=== PATIENT | female | born 1965 | race Caucasian/White ===

== ENCOUNTER 2017-04-14 05:23 | Day surgery (SDC) | payer OTHER ==
[~2017-04-14] VITALS: Ht 167.6 cm; Wt 70.3 kg
[2017-04-14] VITALS (8 sets, daily range): BP systolic 133–155; BP diastolic 66–74
--- NOTE | ~2017-04-14 | EKG ---
[address] [address] ELECTROCARDIOGRAM REPORT Name: BELÉN MCDONALD Room #: 150-3 [facility].R.#: [id number] Admission: 04/14/17 Attend Phys: Jared Booth Discharge: Date of : 61 Report #: [id number] THIS REPORT FOR: //name// [facility] Test Date: 2017-04-14 Test Time: 07:21:56 Pat Name: BELÉN MCDONALD Department: Room: 150 3 Gender: F Stumper Feller: REBECCA : 1965 Requested By: Jared Moreno Order Number: [id number] MD: Jose Erickson Measurements Intervals [place] Rate: 72 P: 55 MD: 173 QRS: 57 QRSD: 83 T: 18 QT: 368 QTc: 403 Interpretive Statements Sinus rhythm Normal tracing Compared to ECG 07/30/2004 09:20:38 No significant changes Electronically Signed On 04-14-2017 8:44:40 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
--- NOTE | ~2017-04-14 | O ---
[facility] [place] [address] OPERATIVE REPORT Name: BELÉN MCDONALD Room #: [facility] MKristen.#: [id number] Admission: 04/14/17 Attend Phys: Jared Booth Discharge: 04/15/17 Date of : 61 Report #: [id number] THIS REPORT FOR: //name// CC: Jared May DATE OF SERVICE: 04/14/2017 PREOPERATIVE DIAGNOSES: Right shoulder pain, recurrent; massive rotator cuff tear, glenohumeral joint osteoarthritis, asymptomatic acromioclavicular joint osteoarthritis. POSTOPERATIVE DIAGNOSES: Right shoulder recurrent rotator cuff tear, massive; complex labral tear, humeral head and glenoid chondromalacia, subacromial adhesions, retained loose hardware/implants. PROCEDURE PERFORMED: Right shoulder arthroscopy, rotator cuff repair of the subscapularis, superior capsule reconstruction, extensive debridement, hardware removal. SURGEON: Jared Moreno M.D. WIRE WALKER: Sharona Cheung PA-C ANESTHESIA: General with preoperative indwelling interscalene block catheter by Dr. Paola Rodríguez. FLUIDS: 750 mL crystalloid. ESTIMATED BLOOD LOSS: Approximately 10 mL. IMPLANTS UTILIZED: Arthrex superior capsule reconstruction with associated push-lock and SwiveLock anchors and allograft decellularized dermis. DESCRIPTION OF PROCEDURE: After proper identification of the patient and operative site in preoperative holding area, the operative site was signed by myself. Prophylactic antibiotics given. The patient discussed the risks, benefits, alternatives and potential complications of a nerve block with Dr. Rodríguez. After reviewing these, she elected to proceed with this and an indwelling catheter was placed. The patient tolerated this well. The patient has had difficulty with postoperative pain management, nausea and vomiting following her prior surgeries requiring admittance to the hospital. The patient was then brought back to the operative suite. After induction of satisfactory general endotracheal anesthesia, the right shoulder was examined. It was stable throughout a full arc of motion comparable to the preoperative assessment. The patient was carefully positioned in the left lateral decubitus position on [address] [address] OPERATIVE REPORT Name: BELÉN MCDONALD Room #: [facility] M.R.#: [id number] Admission: 04/14/17 Attend Phys: Jared Booth Discharge: 04/15/17 Date of : 61 Report #: [id number] bag and extra roll utilized to support the torso. The right shoulder was sterilely prepped and draped in usual manner and placed in 10 pounds of balanced arthroscopic suspension. Posterior portal was established. Joint was inflated with an arthroscopic pump set at 40 mmHg. An anterior superior portal was created using a spinal needle for localization. Examination of the glenohumeral joint revealed a massive rotator cuff tear. This involved the upper border of the subscapularis, the entire supraspinatus extending into the anterior infraspinatus, complex labral tear of the more anterior, superior and posterior superior quadrants was noted and this was carefully debrided with motorized shaver. Partial thickness chondral loss fibrillation and loose chondral flaps were noted on the more superior humeral head. Fibrillated tissue was carefully debrided. This appeared to occupy approximately 50% of the chondral thickness. There was also some thinning of the humeral head chondral surface inferiorly as well as along the more superior aspect of the glenoid some wear was noted here. There was evidence of prior long head of the biceps tendon tear. At this point, an additional more anterior inferior portal was created for the subscapularis repair. The upper border was torn for approximately 10-12 mm. Sharp ring curet was used to prepare the lesser tuberosity and utilizing a 4.75 mm SwiveLock anchor and a fiber type passed in a simple manner the upper border was secured. The arthroscope was then introduced into the subacromial space. An additional posterolateral and lateral portal were created with a pass port and a portal off the lateral border of the acromion. Subdeltoid and subacromial adhesions were carefully released. There was no supraspinatus available to attempt a repair. Retained suture from her previous repairs was noted and this was removed in its entirety. There were two anchors of more of a PEEK type material that were loose that were able to be removed as well. Along the greater tuberosity, there were multiple metallic anchors placed and these portions were removed as best as possible. Several small intraarticular metallic loose bodies were also removed. The region surrounding these anchors, the bone quality of the greater tuberosity appeared to be reasonably well maintained and a sharp ring curet was used to prepare the bone surface around this area, and a motorized bur was used to contour some of the hard cortical appearing bone around these region and bring this into a more normal appearing contour for the graft placement. Superior aspect of the glenoid was prepared with motorized shaver and 2 Arthrex Bio SutureTak were inserted. They had good purchase and were measured to be approximately 14-15 mm apart. The more anterior aspect of the infraspinatus, its frayed leading edge was carefully debrided, but there was a large defect involving the entire supraspinatus that was unable to be repaired. There was no means to repair this with any sort of interval slide type technique and the leading edges of the infraspinatus was able to be repaired with the more posterior anchor within the greater tuberosity that also incorporated the graft. At this point, two SwiveLock anchors were placed within the greater tuberosity, one was posterior to the more massive metallic anchor was placed and one was more anterior. The surrounding bony region appeared amenable to healing and repair and the articular margin where it met the bony surface was carefully prepared to have a nice leading edge for reattachment. Once the 4 anchors were [facility] [address] [place] [address] OPERATIVE REPORT Name: BELÉN MCDONALD Room #: [facility] Adrian#: [id number] Admission: 04/14/17 Attend Phys: Jared Booth Discharge: 04/15/17 Date of : 61 Report #: [id number] placed, measurements were taken and additional graft material 5 mm from these holes was then added around the graft construct and it was then trimmed in a trapezoidal manner with the appropriate measurements. Sutures holes were punched and through the 12 mm pass port portal laterally the graft was rolled up in a cigar type fashion and positioned into place with a grasper as well as tensioning the tissues. The anchors on the glenoid side were also used to tie the mobilized cuff tissue in this region over the graft and in a double seamus technique the graft was tensioned, was well positioned over the superior glenoid and tied. Its position was verified on the greater tuberosity and humeral side. The fiber tapes were crossed and 2 additional SwiveLock anchors were placed in the greater tuberosity for an additional lateral row of fixation. There was nice tension on the graft that nicely filled the defect. There was excellent hemostasis and all the subdeltoid adhesions had been carefully released. At this point, the area was thoroughly irrigated with normal saline. Portal was closed with simple nylon stitches, sterile dressing was applied. The patient will be immobilized in a sling for 8 weeks postoperatively and a PolarCare unit was then applied over the dressing. Qualified shipping assistant utilized throughout the entire procedure to aid in patient limb positioning, visualization with the arthroscopic instrument, suture passage as well as closure and sling application. <ELECTRONICALLY SIGNED> By: Jared Moreno MD 04/21/17 0741 [id number] Jared Moreno MD /nt
[~2017-04-14 05:23] MED LIST: PREMPRO 0.3 MG1 EACH PO; UNICOMPLEX M TA1 TA1 PO
[2017-04-15 05:34] VITALS: BP 119/68
[2017-04-15 06:33] LABS: HEMATOCRIT 37.2 % (37.0-47.0); HEMOGLOBIN 12.7 gm/dL (12.0-15.0); POTASSIUM 4.2 mmol/L (3.5-5.1)
[2017-04-15 09:07] VITALS: BP 119/68
== END 2017-04-15 10:14 | disposition home or self-care (01) ==
LOC: OR 05:23 → TBA 05:23 → 4N 05:23 → OR 10:19 → 4N 13:10 → OR 14:06 → ENTRNSPT 04-15 10:06 → EDTRNSPTSTS 04-15 10:09 → OR 04-15 10:14
PROVIDERS: Physician Assistant Surgical
DX: M75.121 Complete rotator cuff tear or rupture of right shoulder, not specified as traumatic (principal); M19.011 Primary osteoarthritis, right shoulder; M24.111 Other articular cartilage disorders, right shoulder; M94.211 Chondromalacia, right shoulder; T84.84XA Pain due to internal orthopedic prosthetic devices, implants and grafts, initial encounter; Z98.890 Other specified postprocedural states; Z79.891 Long term (current) use of opiate analgesic; Y83.8 Other surgical procedures as the cause of abnormal reaction of the patient, or of later complication, without mention of misadventure at the time of the procedure
CPT/HCPCS: 50010; 50101; 50172; 50386; 50417; 50539; 50597; 50612; 50935; 50950; 51038; 51320; 51445; 51847; 52001; 53610; 54170; 55430; 56527; 62110; 62900; 64041; 64043; 70005